=== PATIENT | female | born 1970 | race Caucasian/White ===

== ENCOUNTER 2020-12-27 07:13 | Day surgery (SDC) | payer OTHER ==
[~2020-12-27 07:13] MED LIST: Lactated Ringers 1,000 ML IV SCH; Sodium Chloride 0.9% 10 ML Syringe FLUSH PRN
[2020-12-27] MEDS ORDERED: Propofol 200 MG/20 ML SDV ONE (08:07)
[2020-12-27] MEDS ORDERED: fentaNYL 100 MCG/2 ML SDV ONE (08:08)
--- NOTE | 2020-12-27 14:14 | OR ---
DATE OF SURGERY: 12/27/2020. REFERRING PROVIDER: Alfred Neri MD PRE-OPERATIVE DIAGNOSIS: Screening colonoscopy. This is the patient's first colonoscopy. There is no family history of any colon cancer. POST-OPERATIVE DIAGNOSES: 1. Normal colon. 2. Normal terminal ileum. PROCEDURE: Colonoscopy. SURGEON: Ezekiel Mg M.D. ANESTHESIA: Monitored anesthesia care. BOWEL PREP: Good. Katerina is a 50-year-old female who was brought to the endoscopy suite after discussing risks and benefits of the procedure. Informed consent was obtained for conscious sedation and colonoscopy with or without biopsy and/or polypectomy. We also discussed possibility of missed lesions. Pre-procedure exam was unremarkable. IV, oxygen, and monitors were placed. The patient was placed in the left lateral decubitus position. Sedation was administered and a digital rectal exam was performed and unremarkable except for some external hemorrhoidal skin tags which are not inflamed. Colonoscope was passed into the rectum and slowly advanced all the way to the cecum. Cecum was viewed and photographed. Ileocecal valve was intubated and terminal ileum was normal in appearance. The colonoscope was slowly withdrawn and the mucosa was closed observed in a direct circumferential manner. The ascending colon was unremarkable. The transverse colon was unremarkable. The descending colon was unremarkable. The sigmoid colon was unremarkable. Retroflexion was performed and rectal mucosa was unremarkable. Scope was removed. The patient tolerated the procedure well. The patient was monitored until that baseline status. Discharge instructions were reviewed and the patient was discharged in good condition. COMPLICATIONS: None. TOTAL TIME: 24 minutes. ESTIMATED BLOOD LOSS: None. RECOMMENDATIONS/FOLLOW-UP: I would recommend repeating colonoscopy again in 10 years barring any interval change in family history or personal symptoms. I would like to kindly thank Dr. Neri for this referral. DMB: 12/27/2020 10:05:41 MODL: 12/27/2020 13:39:14 /[id number]
== END 2020-12-27 10:55 | disposition home or self-care (01) ==
LOC: VM.SDS 07:13
PROVIDERS: ATTEND Family Medicine
DX: Z12.11 Encounter for screening for malignant neoplasm of colon (principal); K64.4 Residual hemorrhoidal skin tags; I10 Essential (primary) hypertension; E66.9 Obesity, unspecified; E11.9 Type 2 diabetes mellitus without complications; R82.994 Hypercalciuria; Z98.890 Other specified postprocedural states; Z88.2 Allergy status to sulfonamides; Z88.8 Allergy status to other drugs, medicaments and biological substances; Z68.38 Body mass index [BMI] 38.0-38.9, adult
CPT/HCPCS: 00812; 82947; J2704; J3010; J7120